=== PATIENT | female | born 1955 | race Caucasian/White ===

== ENCOUNTER → 2018-05-06 | Outpatient (CLI) | payer BC | LOC: MC.RAD 10:14 | DX: Z12.31 Encounter for screening mammogram for malignant neoplasm of breast (principal) ==

== ENCOUNTER → 2019-05-19 | Outpatient (CLI) | payer MEDICARE, OTHER | LOC: MC.RAD 16:15 | DX: Z12.31 Encounter for screening mammogram for malignant neoplasm of breast (principal) ==

== ENCOUNTER 2020-03-24 11:23 | Emergency (ER) | payer MEDICARE, OTHER ==
[~2020-03-24] VITALS: Ht 165.1 cm; Wt 65.9 kg
[2020-03-24 11:27] VITALS: TEMP 97.3
[2020-03-24 11:50] LABS: COLLECTION METHOD CLEAN CATCH
[2020-03-24 11:54] LABS: BASO % 0.3 % (0.0-2.0); EOS % 0.3 % (0-4.0); GRAN # 5.5 (1.4-6.5); GRAN % 78.5 % (42.2-75.2); HEMATOCRIT 44.7 % (37.0-47.0); HEMOGLOBIN 14.8 g/dl (12.5-16.0); LYMPH # 1.1 (1.2-3.4); LYMPH % 16.2 % (20.0-51.0); MEAN CELL VOLUME 94 fl (80.0-100.0); MEAN CORPUSCULAR HEMOGLOBIN 31 pg (27.0-31.0); MEAN CORPUSCULAR HGB CONC 33 g/dl (33.0-37.0); MEAN PLATELET VOLUME 9.8 fl (7.4-10.4); MONO # 0.3 (0.1-0.6); MONO % 4.4 % (1.7-9.3); PLATELET COUNT 186 K/mm3 (130-400); RED BLOOD COUNT 4.74 M/mm3 (4.10-5.30); REDCELL DISTRIBUTION WIDTH-CV 12.2 % (11.5-14.5)
[2020-03-24 11:55] LABS: MUCOUS Present /lpf; PH 6 (5-8); SQUAMOUS EPITHELIAL 0-2 /hpf; URINE APPEARANCE Clear; URINE BACTERIA None Seen /hpf; URINE BILIRUBIN Negative (NEGATIVE); URINE BLOOD Negative (NEGATIVE); URINE COLOR Yellow; URINE GLUCOSE Negative (NEGATIVE); URINE KETONE Negative (NEGATIVE); URINE LEUKOCYTE ESTERASE Negative (NEGATIVE); URINE NITRATE Negative (NEGATIVE); URINE PROTEIN(semi-quant) Negative (NEGATIVE); URINE UROBILINOGEN Negative (NEGATIVE)
[2020-03-24] MEDS ORDERED: SEROQUEL XR150 MG PO (12:02)
[2020-03-24] MEDS ORDERED: ZOCOR 20MG20 MG PO (12:02)
[2020-03-24 12:06] LABS: ALANINE AMINOTRANSFERASE 20 U/L (4-34); ALBUMIN 4.9 gm/dL (3.5-5.0); ALKALINE PHOSPHATASE 67 U/L (50-136); ANION GAP 11 mmol/L (7-16); AST,SGOT 27 U/L (15-37); BILIRUBIN,TOTAL 0.8 mg/dL (0.0-1.0); BLOOD UREA NITROGEN 18 mg/dL (7-17); CARBON DIOXIDE 28 mmol/L (22-30); CHLORIDE 101 mmol/L (98-107); CREATININE, serum 0.84 (0.52-1.25); GLUCOSE 110 mg/dL (74-106); POTASSIUM 3.8 mmol/L (3.4-5.0); SODIUM 139 mmol/L (137-145); TOTAL PROTEIN 8.1 gm/dL (6.4-8.2)
[2020-03-24 12:09] LABS: C-REACTIVE PROTEIN < 0.5 mg/dL (0.0-0.9)
[2020-03-24] MEDS ORDERED: NORCO 325 MG-51 TAB PO (13:56)
[2020-03-24] MEDS ORDERED: FLEXERIL 1010 MG/TAB PO (13:56)
[2020-03-24 14:06] VITALS: BP 145/84; PULSE 61
== END 2020-03-24 14:13 | disposition home or self-care (01) ==
LOC: COL.ER 11:23
PROVIDERS: Nurse Practitioner
DX: R10.32 Left lower quadrant pain (principal); E78.00 Pure hypercholesterolemia, unspecified
CPT/HCPCS: J2270; J2405; J7030; Q9967

== ENCOUNTER → 2020-05-30 | Outpatient (CLI) | payer MEDICARE, OTHER ==
[~2020-05-30] MED LIST: FLEXERIL 1010 MG/TAB PO; NORCO 325 MG-51 TAB PO; SEROQUEL XR150 MG PO; ZOCOR 20MG20 MG PO
== END ==
LOC: MC.RAD 09:37
DX: Z12.31 Encounter for screening mammogram for malignant neoplasm of breast (principal)

== ENCOUNTER → 2021-06-14 | Outpatient (CLI) | payer MEDICARE, OTHER | LOC: MC.RAD 13:00 | DX: Z12.31 Encounter for screening mammogram for malignant neoplasm of breast (principal) ==

== ENCOUNTER → 2023-07-21 | Outpatient (CLI) | payer MEDICARE, OTHER | LOC: CANSCHCLI → MC.RAD 16:26 → COL.RAD 16:45 | DX: Z12.31 Encounter for screening mammogram for malignant neoplasm of breast (principal) ==